=== PATIENT | female | born 2000 | race Caucasian/White ===

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

== ENCOUNTER 2020-08-01 22:42 | Emergency (ER) | payer MEDICAID, SELFPAY ==
[2020-08-01] VITALS (8 sets, daily range): BP systolic 97–114; BP diastolic 53–60; PULSE 69–88; RESP 15; TEMP 37.2; O2SAT 96–99; BMI 38.9
--- NOTE | 2020-08-01 22:56 | CT_ITS ---
PROCEDURE INFORMATION: Exam: CT Abdomen And Pelvis With Contrast Exam date and time: 08/01/2020 10:56 PM Age: 19 years old Clinical indication: Nausea and vomiting; Patient HX: Nausea, vomiting, fever , generalized abd pain; Additional info: Nausea, vomiting, fever TECHNIQUE: Imaging protocol: Computed tomography of the abdomen and pelvis with contrast. Radiation optimization: All CT scans at this facility use at least one of these dose optimization techniques: automated exposure control; mA and/or kV adjustment per patient size (includes targeted exams where dose is matched to clinical indication); or iterative reconstruction. Contrast material: ISOVUE; Contrast volume: 75 ml; Contrast route: IV; COMPARISON: ABDPELW CT ABD PELVIS W/ CONTRAST 07/28/2016 10:34 PM FINDINGS: Lungs: Calcified granuloma within the right lower lobe. Liver: Normal. Gallbladder and bile ducts: Normal. Pancreas: Normal. Spleen: Normal. Adrenal glands: Normal. No mass. Kidneys and ureters: Normal. Stomach and bowel: Normal. Appendix: Appendix normal. Intraperitoneal space: Unremarkable. No free air. No significant fluid collection. Vasculature: Phleboliths within the pelvis. Lymph nodes: Unremarkable. No enlarged lymph nodes. Urinary bladder: Unremarkable as visualized. Reproductive: Unremarkable as visualized. Bones/joints: No acute abnormality. Soft tissues: Normal. IMPRESSION: No acute abdominal or pelvic abnormality.
[2020-08-01 23:00] LABS: Microscopic, Urine URINE MICROSCOPIC (MICROSCOPIC)
[2020-08-01 23:03] LABS: Appearance,Urine CLEAR (Clear); Blood, Urine 1+ (Negative); Color,Urine YELLOW (Yellow); Glucose,Urine (UA) Negative (Negative); Ketones,Urine Negative (Negative); Leukocyte Esterase,Urine Negative (Negative); Nitrate,Urine Negative (Negative); Protein,Urine TRACE (Negative); Specific Gravity, Urine >= 1.030 (1.005-1.030)
[2020-08-01 23:06] LABS: Urine Pregnancy, HCG Qual. Negative (Negative)
[2020-08-01 23:09] LABS: Basophils # 0.1 K/mm3 (0-0.2); Basophils % 0.7 % (0.1-2.0); Eosinophils # 0.1 K/mm3 (0.0-0.4); Eosinophils % 1.6 % (0.1-12.0); Hematocrit 42.1 % (37.0-47.0); Hemoglobin 14.6 g/dL (12.2-16.2); Lymphocytes % 37.9 % (10-50); Mean Corpuscular HGB Conc 34.7 g/dL (31.8-35.4); Mean Corpuscular Hemoglobin 27.9 pg (27.0-31.2); Mean Corpuscular Volume 80.3 fl (81-99); Mean Platelet Volume 7.9 fl (7.4-10.4); Monocytes # 0.4 K/mm3 (0.1-1.0); Monocytes % 5.5 % (1.7-9.3); Neutrophils # 4.3 K/mm3 (1.8-7.8); Neutrophils % 54.3 % (37.0-80.0); Platelet Count 316 K/mm3 (142-424); Red Blood Count 5.25 M/mm3 (4.20-5.40); Red Cell Distribution Width 13.6 % (11.5-17.5); White Blood Count 7.9 K/mm3 (4.5-13.0)
[2020-08-01 23:14] LABS: Chloride 105 mmol/L (98-107); Potassium 3.8 mmoL/L (3.5-5.1); Sodium 140 mmol/L (136-145)
[2020-08-01 23:16] LABS: Amylase 54 U/L (30-110)
[2020-08-01 23:17] LABS: Bilirubin,Urine Negative (Negative)
[2020-08-01 23:17] LABS: Alanine Aminotransferase 19 U/L (12-78); Albumin Level 4.7 g/dl (3.5-5.0); Albumin/Globulin Ratio 1.3 (1.1-1.8); Alkaline Phosphatase 80 U/L (38-126); Anion Gap 11.8 mEq/L (5-15); Aspartate Amino Transferase 36 U/L (14-36); Bilirubin,Total 0.9 mg/dl (0.2-1.3); Blood Urea Nitrogen 9 mg/dl (7-17); Calcium 9.3 mg/dl (8.4-10.2); Carbon Dioxide 27 mmol/L (22.0-30.0); Creatinine Clearance Estimated 204 mL/min (50-200); Estimated Glomerular Filt Rate 108 ml/min (>60); GFR (African American) 130 ML/MIN (>60); Globulin 3.7 g/dL (1.3-3.2); Glucose 95 mg/dl (74-100); Lipase 70 U/L (23-300); Total Protein,Serum 8.4 g/dl (6.3-8.2)
[2020-08-01 23:18] LABS: Bacteria,Urine 3+ /lpf; Mucus,Urine 3+ /lpf; Squamous Epithelial Cell,Urine 20-50 #/hpf (0-5)
[2020-08-01 23:27] LABS: Strep Scrn Group A (Rapid) Negative (Negative)
[2020-08-02 00:04] LABS: Adenovirus,PCR Not Detected (NotDetected); Bordetella Pertussis Not Detected (NotDetected); Chlamydophila Pneumoniae, PCR Not Detected (NotDetected); Coronavirus 19, PCR Not Detected (NotDetected); Coronavirus 229E Not Detected (NotDetected); Coronavirus NL63 Not Detected (NotDetected); Coronavirus OC43 Not Detected (NotDetected); Coronovirus HKU1,PCR Not Detected (NotDetected); Human Metapneumovirus Not Detected (NotDetected); Influenza A, PCR Not Detected (NotDetected); Influenza AH1, 2009 Not Detected (NotDetected); Influenza AH1, PCR Not Detected (NotDetected); Influenza AH3,PCR Not Detected (NotDetected); Influenza B, PCR Not Detected (NotDetected); Mycoplasma Pneumoniae, PCR Not Detected (NotDetected); Parainfluenza 1, PCR Not Detected (NotDetected); Parainfluenza 2, PCR Not Detected (NotDetected); Parainfluenza 3, PCR Not Detected (NotDetected); Parainfluenza 4, PCR Not Detected (NotDetected); Respiratory Syncytial Virus Not Detected (NotDetected); Rhinovirus/Enterovirus Not Detected (NotDetected)
[2020-08-02 00:41] VITALS: BP 104/69; PULSE 67; O2SAT 100
--- NOTE | 2020-08-02 00:57 | HMH.EDNVD ---
ED Disposition Clinical Impression: Acute viral syndrome Disposition: Home, Self-Care Condition on Discharge: Good Instructions: DI for Vomiting -- Adult Additional Instructions: fluids and use meds and see pcp for erich yip Prescriptions: ondansetron HCL [Zofran 4mg Tab] 4 mg PO TID #21 tab Transmission Status: Pending to [id number] - [facility] Rx Referrals: Gini Winslow MD [Primary Care Provider] - - Critical Care Critical Care Time: No Attestation: On 08/01/20, the high probability of a clinically significant, sudden or life threatening deterioration of the following system(s) required my full and direct attention, intervention and personal management. The time I documented below is in addition to time spent performing reported procedures but includes the following listed in this critical care notation. Medical Decision Making - Medical Records Medical records reviewed: Yes: I reviewed the patient's medical records. - Raymond Inquiry Pt receiving controlled substance: No Vital Signs: 08/01/20 22:50 08/01/20 22:51 08/01/20 22:52 Temperature 98.9 F Temperature Source Oral Pulse Rate 75 Pulse Rate [Right Brachial] 88 Respiratory Rate 15 Blood Pressure 114/56 L Blood Pressure [Right Arm] 114/56 L Blood Pressure Mean 86 Blood Pressure Mean [Right Arm] 75 Blood Pressure Source [Right Arm] Automatic Cuff Blood Pressure Position [Right Arm] Sitting 02 Sat by Pulse Oximetry 96 98 Oxygen Delivery Method Room Air 08/01/20 22:59 08/01/20 23:00 08/01/20 23:15 Temperature Temperature Source Pulse Rate 75 71 71 Pulse Rate [Right Brachial] Respiratory Rate Blood Pressure 97/60 L 99/53 L Blood Pressure [Right Arm] Blood Pressure Mean 73 65 Blood Pressure Mean [Right Arm] Blood Pressure Source [Right Arm] Blood Pressure Position [Right Arm] 02 Sat by Pulse Oximetry 98 98 98 Oxygen Delivery Method 08/01/20 23:30 08/01/20 23:45 Temperature Temperature Source Pulse Rate 70 69 Pulse Rate [Right Brachial] Respiratory Rate Blood Pressure 108/53 L Blood Pressure [Right Arm] Blood Pressure Mean 71 Blood Pressure Mean [Right Arm] Blood Pressure Source [Right Arm] Blood Pressure Position [Right Arm] 02 Sat by Pulse Oximetry 99 99 Oxygen Delivery Method - Lab Data Lab results reviewed: Yes: I reviewed the patient's lab results. Lab Results 08/01/20 22:50: Urine Color Yellow, Urine Appearance Clear, Urine pH 6.0, Ur Specific [place] >= 1.030, Urine Protein Trace, Urine Glucose (UA) Negative, Urine Ketones Negative, Urine Blood 1+, Urine Nitrate Negative, Urine Bilirubin Negative, Urine Urobilinogen 1.0, Ur Leukocyte Esterase Negative, Urine RBC 3-5, Urine WBC 5-10, Ur Squamous Epith Cells 20-50, Urine Bacteria 3+, Urine Mucus 3+ 08/01/20 22:50: Urine HCG, Qual Negative 08/01/20 22:58: WBC 7.9, RBC 5.25, Hgb 14.6, Hct 42.1, MCV 80.3 L, MCH 27.9, MCHC 34.7, RDW 13.6, Plt Count 316, MPV 7.9, Neut % (Auto) 54.3, Lymph % (Auto) 37.9, Teller % (Auto) 5.5, Eos % (Auto) 1.6, Baso % (Auto) 0.7, Neut # (Auto) 4.3, Lymph # (Auto) 3.0, Teller # (Auto) 0.4, Eos # (Auto) 0.1, Baso # (Auto) 0.1 08/01/20 22:58: Sodium 140, Potassium 3.8, Chloride 105, Carbon Dioxide 27, Anion Gap 11.8, BUN 9, Creatinine 0.70, Estimated Creat Clear 204, Estimated GFR 108, Est GFR ( Amer) 130, Glucose 95, Calcium 9.3, Total Bilirubin 0.9, AST 36, ALT 19, Alkaline Phosphatase 80, Total Protein 8.4 H, Albumin 4.7, Globulin 3.7 H, Albumin/Globulin Ratio 1.3, Amylase 54, Lipase 70 08/01/20 23:06: Group A Strep Rapid Negative Result diagrams: 08/01/20 22:58 08/01/20 22:58 Orders (Tests/Meds): ED MEDICATIONS Generic Name Dose Route Start Last Admin Trade Name Freq PRN Reason Stop Dose Admin Sodium Chloride 1,000 mls @ 999 mls/hr 08/01/20 23:00 08/01/20 23:07 Sod Chlor 0.9% 1000ml Bag IV 08/02/20 00:00 999 mls/hr .Q1H1M KOLTON Administrat
[2020-08-02 01:00] VITALS: BP 100/68; PULSE 61; RESP 16; O2SAT 100
[2020-08-02 01:23] VITALS: BP 100/68; PULSE 73; RESP 16; TEMP 36.7; O2SAT 98
== END 2020-08-02 01:36 | disposition home or self-care (01) ==
PROVIDERS: Emergency Provider Emergency Medicine; PCP Family Medicine
DX: B34.9 Viral infection, unspecified (principal); R11.2 Nausea with vomiting, unspecified; R50.9 Fever, unspecified; F41.9 Anxiety disorder, unspecified
CPT/HCPCS: 74177; 80053; 81001; 81025; 82150; 83690; 85025; 87086; 87430; 87581; 87633; 87798; 96365; 96375; 99284; J2405; Q9967

== ENCOUNTER 2020-08-04 15:21 | Emergency (ER) | payer MEDICAID, SELFPAY ==
[2020-08-04 15:26] VITALS: BP 117/78; PULSE 83; RESP 17; TEMP 37; O2SAT 98; BMI 38.9
[2020-08-04 15:47] VITALS: BP 117/78; PULSE 83; RESP 17; TEMP 37; O2SAT 98
[2020-08-04 15:50] LABS: UTC Strep Screen (Rapid) Positive (Negative)
--- NOTE | 2020-08-04 15:51 | HMH.EDUTC ---
[facility] [place] Disposition Clinical Impression: Strep throat Disposition: Home, Self-Care Condition on Discharge: Good Instructions: Strep Throat, DI for Strep Throat, DI for Nasal Congestion Additional Instructions: *Monitor Temp, Over the counter Motrin or Tylenol as directed/as needed Tylenol every 4 hours and Motrin every 6 hours (as long as your family doctor has told you that you can take it) for fever or pain. and straight to ER if unable to lower temp less than 101.0 after medication given *Warm salt water gargles may help to soothe the throat *Throat Lozenges *Warm fluids like tea with honey may help to soothe the throat *Sleep elevated *Humidifier/Vaporizer *Flonase 2 sprays in each nostril daily but be aware that it may take 2-3 days before you notice improvement Take medication as prescribed Follow up IMMEDIATELY for new or worsening symptoms or no Noticeable improvement over the next 48-72 hours. 911 for difficulty breathing or swallowing Prescriptions: Fluticasone Propionate [Flonase 50mcg nasal spray 16gm] 1 spr NS DAILY #1 bottle Transmission Status: Received by [id number] methylPREDNISolone [Medrol 4mg tab] 4 mg PO DIRECTED #21 tab Transmission Status: Received by [id number] Azithromycin [Z-Petey 250mg Tab] 250 mg PO DIRECTED #6 tab Transmission Status: Received by [id number] Referrals: Gini Winslow MD [Primary Care Provider] - As needed Time of Disposition: 15:59 Medical Decision Making - Raymond Inquiry Pt receiving controlled substance: No Raymond was queried for this patient: No Vital Signs: 08/04/20 15:26 08/04/20 15:47 Temperature 98.6 F 98.6 F Temperature Source Oral Pulse Rate 83 Pulse Rate [Left] 83 Respiratory Rate 17 17 Blood Pressure 117/78 Blood Pressure [Right Arm] 117/78 Blood Pressure Mean [Right Arm] 91 02 Sat by Pulse Oximetry 98 - Lab Data Lab results reviewed: Yes: I reviewed the patient's lab results. Lab Results 08/04/20 15:48: Strep Scn Rapid Clinic Positive A [facility] [place] HPI - General Stated complaint: sore throat,vomiting,congestion,,fever Time Seen by Provider: 08/04/20 15:51 Mode of Arrival: Ambulatory Source of Information: Patient Limitations: No Limitations Description of Symptoms (Recalled from Triage Doc. by RN): Pt states that she started with vomiting 1 week ago and now has a sore throat and fever of 99.8 that started this morning. HEENT Symptoms (Recalled from RN notes): Yes Resp Symptoms (Recalled from RN notes): Yes Skin Symptoms (Recalled from RN notes): No MS Symptoms (Recalled from RN notes): No Functional Status (Recalled from RN notes): wnl - History of Present Illness Provider Complaint: Patient states that she started with vomiting about a week ago and was seen in ED a few days ago for vomiting and tested for COVID and strep and they was negative and given some Zofran State that since then her sore throat that has continued to get worse and having nasal congestion and drainage State that vomiting is better but her throat is worse and now starting to have a low grade fever Denies chance of due to depo - Related Data Previous Rx's Medication Instructions Recorded medroxyprogesterone 150 mg/mL 150 mg IM [id number] #1 ml 06/09/19 intramuscular suspension ondansetron HCL [Zofran 4mg Tab] 4 mg PO TID #21 tab 08/02/20 Azithromycin [Z-Petey 250mg Tab] 250 mg PO DIRECTED #6 tab 08/04/20 Fluticasone Propionate [Flonase 1 spr NS DAILY #1 bottle 08/04/20 50mcg nasal spray 16gm] methylPREDNISolone [Medrol 4mg 4 mg PO DIRECTED #21 tab 08/04/20 tab] Allergies Allergy/AdvReac Type Severity Reaction Status Date / Time amoxicillin [AMOXICILLIN] Allergy Unknown Verified 08/04/20 15:46 Penicillins [PENICILLINS] Allergy Unknown Verified 08/04/20 15:46 - Worker's Comp Is this a Worker's Comp case?: No [facility] History - Hepatitis A Screen Drug use history?: No High risk
== END 2020-08-04 16:11 | disposition home or self-care (01) ==
PROVIDERS: Emergency Provider Nurse Practitioner; PCP Family Medicine
DX: J02.0 Streptococcal pharyngitis (principal); Z88.0 Allergy status to penicillin
CPT/HCPCS: 87880; 99202; G0463

== ENCOUNTER 2020-09-12 17:24 | Emergency (ER) | payer MEDICAID, SELFPAY ==
[2020-09-12 17:25] VITALS: BP 129/77; PULSE 89; RESP 18; TEMP 37; O2SAT 98; BMI 36.9
--- NOTE | 2020-09-12 17:32 | XR_ITS ---
PROCEDURE INFORMATION: Exam: XR Right Wrist Exam date and time: 09/12/2020 5:32 PM Age: 19 years old Clinical indication: Injury or trauma; Fall; Blunt trauma (contusions or hematomas); Injury details: Patient fell at [facility] injuring right wrist. Shielded. ; Additional info: Pain TECHNIQUE: Imaging protocol: XR Right wrist. Views: 3 or more views. COMPARISON: No relevant prior studies available. FINDINGS: Bones/joints: No definite acute fracture or dislocation. No significant arthritic deformities. There are no lytic skeletal lesions seen. Soft tissues: Soft tissue swelling. No radiopaque foreign bodies. No pathologic soft tissue calcification. IMPRESSION: 1. No acute fracture or dislocation. 2. Soft tissue swelling, correlate for sprain or contusion.
--- NOTE | 2020-09-12 17:47 | HMH.EDUTC ---
[facility] [place] Clinical Impression: Wrist sprain Qualifiers: Encounter type: initial encounter Laterality: right Qualified Code(s): S63.501A - Unspecified sprain of right wrist, initial encounter Disposition: Home, Self-Care Condition on Discharge: Good Instructions: How To Perform RICE (Rest, Ice, Compress, Elevate) Additional Instructions: *RICE, Rest the extremity, Ice 15-20 minutes 3-4 times daily, Compress- wear the phil wrap as discussed as much as possible to help reduce swelling and pain, Elevate the extremity when at rest *Phil wrap is for support and help control swelling, use it except in the shower. Be sure that is not to tight but not to loose either *Elevate when resting *Ibuprofen every 6-8 hours as needed for pain an inflammation. If need something more can take Tylenol in between doses of Ibuprofen to help Immediately follow up with your family doctor for new or worsening of symptoms, or no noticeable improvement over the next 3-5 days Call back to the [facility] later this evening for the official Radiology Reading of your xray Follow up with your Family Doctor if no improvement or any worsening of symptoms Follow up with Orthped[facility] Dr Reynaga if needed Return if needed Straight to ER if any life threatening symptoms Referrals: Gini Winslow MD [Primary Care Provider] - As needed Jaron Reynaga MD [Staff Physician] - As needed Time of Disposition: 18:23 Medical Decision Making - Raymond Inquiry Pt receiving controlled substance: No Raymond was queried for this patient: No Vital Signs: 09/12/20 17:25 09/12/20 18:20 Temperature 98.6 F 98.6 F Temperature Source Oral Pulse Rate 89 Pulse Rate [Right Brachial] 89 Respiratory Rate 18 18 Blood Pressure 129/77 Blood Pressure [Right Arm] 129/77 Blood Pressure Mean [Right Arm] 94 Blood Pressure Source [Right Arm] Automatic Cuff Blood Pressure Position [Right Arm] Sitting 02 Sat by Pulse Oximetry 98 Oxygen Delivery Method Room Air - Radiology Data #1 Image(s): Wrist (right) Image Reviewed: Yes I reviewed the patient's radiology image Preliminary Findings: No Fracture [place] [facility] [place] - General Stated complaint: AO 09/12 @1630 fell in [place] injured R Wrist Time Seen by Provider: 09/12/20 17:47 Mode of Arrival: Ambulatory Source of Information: Patient, Parent(s) Limitations: No Limitations Description of Symptoms (Recalled from Triage Doc. by RN): PATIENT C/O INJURY TO RIGHT WRIST AFTER FALLING IN [employer] [address] AT 1630 TODAY HEENT Symptoms (Recalled from RN notes): No Resp Symptoms (Recalled from RN notes): No Skin Symptoms (Recalled from RN notes): No MS Symptoms (Recalled from RN notes): Yes Functional Status (Recalled from RN notes): WNL - History of Present Illness Provider Complaint: Patient states that she was taking her groceries to the car from [employer] when she tripped and fell State that she stuck her hand out to catch her fall and she has been having pain in her right wrist ever since States that hurts most when she moves her little finger and ring finger - Related Data Previous Rx's Medication Instructions Recorded medroxyprogesterone 150 mg/mL 150 mg IM [id number] #1 ml 06/09/19 intramuscular suspension Allergies Allergy/AdvReac Type Severity Reaction Status Date / Time amoxicillin [AMOXICILLIN] Allergy Unknown Verified 08/04/20 15:46 Penicillins [PENICILLINS] Allergy Unknown Verified 08/04/20 15:46 - Worker's Comp Is this a Worker's Comp case?: No [facility] History - Hepatitis A Screen Drug use history?: No High risk sexual behaviors?: No History of sexually transmitted infection?: No Currently employed?: No Childcare worker?: No Do you have indoor plumbing?: Yes Do you have electricity?: Yes Attestation statement:: This patient has been screened for Hepatitis A risk factors. I have reviewed the patient's past medical history: Yes Medical History: Reports:: Anxiety Denies:: Asthma, Cancer, Depre
[2020-09-12 18:20] VITALS: BP 129/77; PULSE 89; RESP 18; TEMP 37; O2SAT 98
== END 2020-09-12 18:25 | disposition home or self-care (01) ==
PROVIDERS: Emergency Provider Physician Assistant; PCP Family Medicine
DX: S63.501A Unspecified sprain of right wrist, initial encounter (principal); W01.0XXA Fall on same level from slipping, tripping and stumbling without subsequent striking against object, initial encounter; Y92.481 Parking lot as the place of occurrence of the external cause; F41.9 Anxiety disorder, unspecified; Z88.0 Allergy status to penicillin
CPT/HCPCS: 29125; 73110; 99202; G0463

== ENCOUNTER → 2020-09-26 09:37 | Outpatient (CLI) | payer MEDICAID, SELFPAY ==
--- NOTE | 2020-09-26 09:45 | XR_ITS ---
PROCEDURE: XR WRIST RT W SCAPHOID CLINICAL INDICATION: right wrist pain COMPARISON: CR XR WRIST RT MIN 3V from 09/12/2020 FINDINGS: No acute fractures or dislocations. Bone density is normal. The carpals, metacarpals and the visualized phalanges are unremarkable. The radio carpal alignment is within normal limits. No significant soft tissue abnormality. IMPRESSION: No acute abnormality. No evidence of fractures. Dictated by: Kandice Reynaga 09/26/2020 10:07 Kandice Reynaga in OV 09/26/2020 10:07
== END ==
PROVIDERS: PCP Family Medicine; Visit Provider Orthopaedic Surgery
DX: M25.531 Pain in right wrist (principal)
CPT/HCPCS: 73110

== ENCOUNTER 2022-04-25 12:03 | Emergency (ER) | payer MEDICAID, SELFPAY ==
[2022-04-25 12:04] VITALS: BP 127/72; PULSE 100; RESP 16; TEMP 36.8; O2SAT 98; BMI 34.9
[2022-04-25 12:09] VITALS: BP 127/72; PULSE 109; RESP 20; O2SAT 97
[2022-04-25 12:41] LABS: Basophils # 0.1 K/mm3 (0-0.2); Basophils % 0.9 % (0.1-2.0); Eosinophils # 0.1 K/mm3 (0.0-0.4); Eosinophils % 1.8 % (0.1-12.0); Hematocrit 39.9 % (37.0-47.0); Hemoglobin 13.5 g/dL (12.2-16.2); Lymphocytes # 2.7 K/mm3 (0.7-4.5); Lymphocytes % 40.4 % (10-50); Mean Corpuscular HGB Conc 33.8 g/dL (31.8-35.4); Mean Corpuscular Hemoglobin 27.5 pg (27.0-31.2); Mean Corpuscular Volume 81.4 fl (81-99); Mean Platelet Volume 8.3 fl (7.4-10.4); Monocytes # 0.5 K/mm3 (0.1-1.0); Monocytes % 6.7 % (1.7-9.3); Neutrophils # 3.4 K/mm3 (1.8-7.8); Neutrophils % 50.1 % (37.0-80.0); Platelet Count 337 K/mm3 (142-424); Red Cell Distribution Width 14.2 % (11.5-17.5); White Blood Count 6.7 K/mm3 (4.8-10.8)
[2022-04-25 12:48] LABS: Chloride 102 mmol/L (98-107); Potassium 3.6 mmoL/L (3.5-5.1); Sodium 140 mmol/L (136-145)
[2022-04-25 12:50] LABS: Alanine Aminotransferase 26 U/L (12-78); Aspartate Amino Transferase 31 U/L (14-36); Blood Urea Nitrogen 10 mg/dl (7-17); Creatinine Clearance Estimated 167 mL/min (50-200); Estimated Glomerular Filt Rate 91 ml/min (>60); GFR (African American) 110 ML/MIN (>60)
[2022-04-25 12:51] LABS: Albumin Level 4.7 g/dl (3.5-5.0); Albumin/Globulin Ratio 1.1 (1.1-1.8); Alkaline Phosphatase 60 U/L (38-126); Anion Gap 14.6 mEq/L (5-15); Bilirubin,Total 0.5 mg/dl (0.2-1.3); Calcium 8.9 mg/dl (8.4-10.2); Carbon Dioxide 27 mmol/L (22.0-30.0); Globulin 4.1 g/dL (1.3-3.2); Glucose 90 mg/dl (74-100); Lipase 86 U/L (23-300); Total Protein,Serum 8.8 g/dl (6.3-8.2)
[2022-04-25 12:52] LABS: Microscopic, Urine URINE MICROSCOPIC (MICROSCOPIC)
[2022-04-25 13:01] LABS: Appearance,Urine CLEAR (Clear); Bilirubin,Urine Negative (Negative); Blood, Urine 1+ (Negative); Color,Urine YELLOW (Yellow); Glucose,Urine (UA) Negative (Negative); Ketones,Urine Negative (Negative); Leukocyte Esterase,Urine Negative (Negative); Nitrate,Urine Negative (Negative); PH,Urine 6.5 (5.0-8.5); Protein,Urine Negative (Negative); Urobilinogen,Urine 0.2 EU/dl (0.2)
[2022-04-25 13:05] LABS: HCG Qualitative, Serum Negative (Negative)
--- NOTE | 2022-04-25 13:12 | PC.NURSE ---
DR CUADRA AT BEDSIDE TO EVALUATE PT
--- NOTE | 2022-04-25 13:14 | CT_ITS ---
FINAL REPORT TECHNIQUE: Thin section axial images were obtained through the abdomen after intravenous contrast. Reconstruction images were obtained from the axial data. Exam was performed using dose reduction techniques. CLINICAL HISTORY: RLQ pain x days. Pt hasn't had a bowel movement in 1 wk. COMPARISON: 08/02/2020 FINDINGS: The lung bases are clear. The liver is homogeneous. The gallbladder is absent. The spleen, adrenal glands, and pancreas are unremarkable. There is no hydronephrosis or solid renal mass. Abdominal GI tract is without acute abnormality. No obstruction identified. There is no abdominal lymphadenopathy or ascites. Uterus and ovaries are normal for age. The pelvic portions of the GI tract, including the appendix, are without acute abnormality. There is moderate retained stool. There is no pelvic lymphadenopathy or free fluid. No acute osseous abnormalities identified. IMPRESSION: Moderate stool. Otherwise no acute findings. Reviewed, Interpreted and Dictated by Tiff Painter MD Transcribed by Jeniffer Marx Authenticated and [facility]
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
[2022-04-25 13:19] LABS: Squamous Epithelial Cell,Urine Occasional #/hpf (0-5)
[2022-04-25 13:40] LABS: Urine Pregnancy, HCG Qual. Negative (Negative)
--- NOTE | 2022-04-25 13:40 | PC.NURSE ---
ROUNDED ON PT AT THIS TIME, NO NEEDS VOICED
--- NOTE | 2022-04-25 13:46 | PC.NURSE ---
RADIOLOGY NOTIFIED OF CT SCAN
--- NOTE | 2022-04-25 14:40 | PC.NURSE ---
PT RETURNED FROM CT
[2022-04-25 15:01] VITALS: BP 104/52; PULSE 18; O2SAT 99
[2022-04-25 15:30] VITALS: BP 97/62; PULSE 86; O2SAT 97
--- NOTE | 2022-04-25 15:34 | PC.NURSE ---
checked with rad on pt CT scan results, states they are reading them now.
[2022-04-25 16:00] VITALS: BP 102/50; PULSE 67; RESP 18; O2SAT 98
--- NOTE | 2022-04-25 16:06 | PC.NURSE ---
ER given pt preliminary CT results
[2022-04-25 16:23] VITALS: BP 102/50; PULSE 76; RESP 16; TEMP 36.8; O2SAT 98
== END 2022-04-25 16:23 | disposition home or self-care (01) ==
PROVIDERS: Emergency Provider Emergency Medicine; PCP Family Medicine
DX: R10.31 Right lower quadrant pain (principal); K59.00 Constipation, unspecified
CPT/HCPCS: 74177; 80053; 81001; 81025; 83690; 84703; 85025; 99285; Q9967

== ENCOUNTER 2022-06-03 16:33 | Emergency (ER) | payer MEDICAID, SELFPAY ==
[2022-06-03 16:44] VITALS: BP 136/82; PULSE 91; RESP 20; TEMP 36.9; O2SAT 99; BMI 35.9
--- NOTE | 2022-06-03 16:55 | EXP.UTC ---
Discharge Plan Disposition Patient Disposition: Home, Self-Care Condition: Good Prescriptions Prescriptions: No Action medroxyprogesterone 150 mg/mL suspension 150 mg IM [id number] Qty: 1 0RF lamotrigine 25 mg tablet 25 mg PO DAILY Label Comments: TAKE 1 TABLET BY MOUTH ONCE DAILY FOR 14 DAYS THEN 2 ONCE DAILY omeprazole 20 mg capsule,delayed release(DR/EC) 20 mg PO DAILY Label Comments: TAKE 1 CAPSULE BY MOUTH ONCE DAILY Referrals Follow up/Referrals: Gini Winslow MD [Primary Care Provider] - See instructions Erasmo Deluca JR, MD [Physician] - See instructions Activity Restrictions/Add. Instructions Additional Instructions/Restrictions: Follow up with orthopedics if no improvment or any worsening of symptoms Follow up with your Family Doctor if no improvement or any worsening of symptoms Wear immobilizer as discussed *weight bearing as tolerated *RICE, Rest the extremity, Ice 15-20 minutes 3-4 times daily, Compress- wear the naomie wrap as discussed as much as possible to help reduce swelling and pain, Elevate the extremity when at rest Call orthopedics for appointment *Elevate when resting? *Ibuprofen 600-800mg every 6-8 hours as needed for pain an inflammation. If need something more can take Tylenol in between doses of Ibuprofen to help Immediately follow up with your family doctor for new or worsening of symptoms, or no noticeable improvement over the next 3-5 days Clinical Impressions Clinical Impression: Knee strain Stand Alone Forms Stand Alone Forms: Work/School Release Instructions Patient Instructions: Knee Sprain, How to Use a Knee Immobilizer Discharge ED Provider: Peace Bhakta [facility] General Stated complaint: Left knee pain Mode of Arrival: Ambulatory Source of Information: Patient Limitations: No Limitations Time Seen by Provider: 06/03/22 16:55 Description of Symptoms (Recalled from Triage Doc. by RN): fell down the stair her left knee gave out and hurts. Hx of knee issues HEENT Symptoms (Recalled from RN notes): Yes Resp Symptoms (Recalled from RN notes): No Skin Symptoms (Recalled from RN notes): No MS Symptoms (Recalled from RN notes): No Functional Status (Recalled from RN notes): n/a History of Present Illness Provider Complaint: Patient states that she was walking down the stairs when her left knee give out and she fell States that she feels like it may have popped out and when she straightened her leg she felt it 'pop' back in States that she has had this happen before when she was younger States that she is was still having pain in her knee so she came in to get it checked Denies any other injury Related Data Home Medications Medication Instructions Recorded Confirmed lamotrigine 25 mg tablet 25 mg PO DAILY . 06/03/22 06/03/22 omeprazole 20 mg capsule,delayed 20 mg PO DAILY gerd 06/03/22 06/03/22 release Previous Rx's Medication Instructions Recorded medroxyprogesterone 150 mg/mL 150 mg IM [id number] control 06/09/19 intramuscular suspension #1 mL Allergies Allergy/AdvReac Type Severity Reaction Status Date / Time amoxicillin [AMOXICILLIN] Allergy Unknown Verified 06/03/22 16:54 Penicillins [PENICILLINS] Allergy Unknown SWELLING Verified 06/03/22 16:54 Worker's Comp Is this a Worker's Comp case?: No [facility] Disclaimer: The information contained in this section may have been updated after the patient was seen, as this information can be updated by other users. Social History Smoking Status: Never smoker second hand exposure: No alcohol intake: never substance use type: denies use current occupational status: other Travel in the last 8 weeks: None household members: family housing: house ROS Obtained: Yes All systems reviewed & no additional complaints except as documented and Yes Systems reviewed as appropriate & no additional complaints except as documented Constitutional Constitu
--- NOTE | 2022-06-03 16:55 | XR_ITS ---
PROCEDURE INFORMATION: Exam: XR Left Knee Exam date and time: 06/03/2022 4:53 PM Age: 21 years old Clinical indication: Injury or trauma; Fall; Blunt trauma; Knee; Left; Additional info: Fell down stairs TECHNIQUE: Imaging protocol: Radiologic exam of the left knee. Views: 3 views. COMPARISON: CR XR KNEE LT 3V 03/12/2019 9:44 AM FINDINGS: Bones/joints: Normal. Soft tissues: Normal. IMPRESSION: No acute findings.
[2022-06-03 18:08] VITALS: BP 136/92; PULSE 91; RESP 20; TEMP 36.9; O2SAT 99
== END 2022-06-03 18:08 | disposition home or self-care (01) ==
PROVIDERS: Emergency Provider Nurse Practitioner; PCP Family Medicine
DX: S83.92XA Sprain of unspecified site of left knee, initial encounter (principal); W10.9XXA Fall (on) (from) unspecified stairs and steps, initial encounter
CPT/HCPCS: 73562; 99212; 99213; G0463